=== PATIENT | female | born 1980 | race Caucasian/White ===

== ENCOUNTER 2020-12-11 13:37 | Observation (INO) ==
[~2020-12-11 13:37] MED LIST: *HR* Meperidine 25 MG/ML SYRINGE IVP PRN; *HR* Midazolam HCl 2 MG/2 ML VIAL IVP PRN; *HR* OxyCODONE Immed Rel 5 MG TABLET PO PRN; Acetaminophen IV 1,000 MG/100 ML BAG IVPB PRN; Famotidine 20 MG/2 ML VIAL IVP ONE; Ondansetron 4 MG/2 ML VIAL IVP PRN; Ondansetron ODT 4 MG TAB.RAPDIS SL ONE
[2020-12-11] MEDS ORDERED: cefOXitin 2,000 MG in Water for inj. (sterile) 20 ML IVP ONE (13:49)
[2020-12-11] MEDS ORDERED: Ringers Solution, Lactated 1,000 ML IVC SCH (14:00)
[2020-12-11] MEDS ORDERED: Famotidine 20 MG/2 ML VIAL IVP ONE (14:15)
[2020-12-11] MEDS ORDERED: Ondansetron ODT 4 MG TAB.RAPDIS SL ONE (14:15)
[2020-12-11] MEDS ORDERED: *HR* Rocuronium Bromide 50 MG/5 ML VIAL ONE (15:05)
[2020-12-11] MEDS ORDERED: *HR* Propofol 200 MG/20 ML VIAL IVP ONE (15:05)
[2020-12-11] MEDS ORDERED: *HR* FentaNYL (PF) 100 MCG/2 ML VIAL ONE ×2 (15:05→16:29)
[2020-12-11] MEDS ORDERED: Lidocaine -MPF 2% 2 ML VIAL ONE (15:05)
[2020-12-11] MEDS ORDERED: Ondansetron 4 MG/2 ML VIAL ONE (15:05)
[2020-12-11] MEDS ORDERED: *HR* Midazolam HCl 2 MG/2 ML VIAL ONE (15:05)
[2020-12-11] MEDS: *HR* HYDROmorphone PF 0.5 MG/0.5 ML SYRINGE IVP PRN ×4 (16:57→17:28)
[2020-12-11] MEDS ORDERED: Ondansetron 4 MG/2 ML VIAL IVP PRN (19:26)
[2020-12-11] MEDS: *HR* FentaNYL (PF) 100 MCG/2 ML VIAL IVP PRN ×2 (21:35→21:55)
[2020-12-11] MEDS ORDERED: 0.9 % Sodium Chloride 1,000 ML IVC SCH (22:15)
[2020-12-11] MEDS ORDERED: Ondansetron ODT 4 MG TAB.RAPDIS SL PRN (22:19)
[2020-12-12] MEDS: *HR* OxyCODONE Immed Rel 5 MG TABLET PO PRN ×2 (04:13→08:43)
[2020-12-12 06:41] VITALS: BP 120/74; PULSE 93; TEMP 98.1; O2SAT 98
[2020-12-12] MEDS ORDERED: Ibuprofen 800 MG TABLET PO ONE (09:02)
== END 2020-12-12 11:15 | disposition home or self-care (01) ==
LOC: SAMDAY 13:37 → 3ANU 13:37
PROVIDERS: ADMIT Surgery; ATTEND Surgery